=== PATIENT | male | born 1980 | race Hispanic/Latino ===

== ENCOUNTER → 2025-03-26 | Day surgery (SDC) | payer OTHER ==
[~2025-03-26] MED LIST: BENICAR20 MG PO; HYDROCHLOROTHIA25 MG PO; HYDROXYZINE HCL25 MG PO; LIPITOR10 MG PO; PREVACID15 M1 PO; VENLAFAXINE HCL75 M2 PO; ZYRTEC10 MG PO
[2025-03-26] MEDS: LACTATED RINGER'S 1,000 ML ONE (08:54)
[2025-03-26 12:03] VITALS: TEMP 97.7
[2025-03-26 12:25] VITALS: BP 126/93; PULSE 76; RESP 18; O2SAT 99
== END | disposition home or self-care (01) ==
LOC: ENDO 08:28
PROVIDERS: ATTEND Internal Medicine Gastroenterology
DX: K22.2 Esophageal obstruction (principal); K29.70 Gastritis, unspecified, without bleeding; K20.90 Esophagitis, unspecified without bleeding; K21.9 Gastro-esophageal reflux disease without esophagitis; Z71.3 Dietary counseling and surveillance; G47.33 Obstructive sleep apnea (adult) (pediatric); I10 Essential (primary) hypertension; Z71.89 Other specified counseling; E78.5 Hyperlipidemia, unspecified; I49.9 Cardiac arrhythmia, unspecified; F41.9 Anxiety disorder, unspecified; Z01.810 Encounter for preprocedural cardiovascular examination; Z79.899 Other long term (current) drug therapy; Z86.16 Personal history of COVID-19; Z80.0 Family history of malignant neoplasm of digestive organs
CPT/HCPCS: 43239; 43450; 93005; J2470; J7121